=== PATIENT | male | born 1995 | race Caucasian/White ===

== ENCOUNTER 2016-05-03 08:59 | Emergency (ER) | payer OTHER ==
[2016-05-03] MEDS ORDERED: NS 0.9% 1000 ML* 1,000 ML IV ONE (09:18)
[2016-05-03] MEDS ORDERED: Ketorolac INJ* 30 MG/ML 1 ML VIAL IV PUSH ONE (09:25)
[2016-05-03 09:43] LABS: Hematocrit 45 % (42-52); Hemoglobin 14.8 g/dl (14.0-18.0); Mean Corpuscular HGB Conc 33 g/dl (31-36); Mean Corpuscular Hemoglobin 27 pg (27-31); Mean Corpuscular Volume 82 fL (80-94); Mean Platelet Volume 8 um3 (7.4-10.4); Red Blood Count 5.43 10^6/ul (4.0-5.4); Red Cell Distribution Width 13 % (10.5-15); White Blood Count 11.9 10^3/ul (3.5-10.8)
--- NOTE | 2016-05-03 09:56 | ED ---
Abdominal Pain/Male - HPI Summary HPI Summary: 21M presents with intermittent epigastric pain since 2:00am this morning. He states that he has been having foul smelling watery diarrhea every hour. He states that his epigastric pain is cramp like. He states that no one else is sick but he did have some chicken last night from a [employer] restaurant that tasted funny. He denies any fevers. He states that he made himself vomit because he thought he would feel better. He has not taken anything for the pain. He denies any nausea currently. He denies any recent antibiotic use. - History of Current Complaint Chief Complaint: EDAbdPain Stated Complaint: ABD PAIN / DIARRHEA Time Seen by Provider: 05/03/16 09:07 Pain Intensity: 0 - Allergies/Home Medications Allergies/Adverse Reactions: Allergies Allergy/AdvReac Type Severity Reaction Status Date / Time No Known Allergies Allergy Verified 05/03/16 09:00 PMH/Surg Hx/FS Hx/Imm Hx Endocrine/Hematology History: Denies: Hx Anticoagulant Therapy, Hx Diabetes, Hx Thyroid Disease Cardiovascular History: Denies: Hx Congestive Heart Failure, Hx Deep Vein Thrombosis, Hx Hypertension , Hx Myocardial Infarction, Hx Pacemaker/ICD Respiratory History: Denies: Hx Asthma, Hx Chronic Obstructive Pulmonary Disease (COPD), Hx Lung Cancer, Hx Pneumonia, Hx Pulmonary Embolism GI History: Denies: Hx Gall Bladder Disease, Hx Gastrointestinal Bleed, Hx Ulcer, Hx Urosepsis History: Denies: Hx Kidney Stones, Hx Renal Disease Neurological History: Denies: Hx Dementia, Hx Migraine, Hx Seizures, Hx Transient Ischemic Attacks (TIA) Psychiatric History: Denies: Hx Anxiety, Hx Depression, Hx Schizophrenia, Hx Bipolar Disorder - Surgical History Surgery Procedure, Year, and Place: 2009? FINGER SURGERY - Right 3rd finger - Immunization History Date of Tetanus Vaccine: unk Date of Influenza Vaccine: 11/02/15 Infectious Disease History: No Infectious Disease History: Denies: Hx Clostridium Difficile, Hx Hepatitis, Hx Human Immunodeficiency Virus (HIV), Hx of Known/Suspected MRSA, Hx Shingles, Hx Tuberculosis, Traveled Outside the [place] in Last 30 Days - Family History Known Family History: Positive: Cardiac Disease, Hypertension - Social History Alcohol Use: Rare Substance Use Type: Reports: Marijuana Smoking Status (MU): Never Smoked Tobacco Review of Systems Negative: Fever Negative: Chest Pain Negative: Shortness Of Breath Positive: Abdominal Pain - epigastric, Diarrhea. Negative: Vomiting, Nausea All Other Systems Reviewed And Are Negative: Yes Physical Exam Triage Information Reviewed: Yes Vital Signs On Initial Exam: Initial Vitals Temp Pulse Resp BP Pulse Ox 98.8 F 112 18 152/82 98 05/03/16 09:00 05/03/16 09:00 05/03/16 09:00 05/03/16 09:00 05/03/16 09:00 Vital Signs Reviewed: Yes Appearance: Positive: Well-Appearing Skin: Positive: Warm, Dry Head/Face: Positive: Normal Head/Face Inspection Eyes: Positive: Normal, Conjunctiva Clear Respiratory/Lung Sounds: Positive: Clear to Auscultation, Breath Sounds Present Cardiovascular: Positive: Normal, RRR Abdomen Description: Positive: Nontender, Soft Bowel Sounds: Positive: Present - [place] Coma Scale Coma Scale Total: 15 Diagnostics - Vital Signs Vital Signs Temp Pulse Resp BP Pulse Ox 05/03/16 09:16 100.7 F 05/03/16 09:14 116 99 05/03/16 09:13 164/83 05/03/16 09:00 98.8 F 112 18 152/82 98 - Laboratory Lab Results: Lab Results 05/03/16 Range/Units 09:35 WBC 11.9 H (3.5-10.8) 10^3/ul RBC 5.43 H (4.0-5.4) 10^6/ul Hgb 14.8 (14.0-18.0) g/dl Hct 45 (42-52) % MCV 82 (80-94) fL MCH 27 (27-31) pg MCHC 33 (31-36) g/dl RDW 13 (10.5-15) % Plt Count 322 (150-450) 10^3/ul MPV 8 (7.4-10.4) um3 Neut % (Auto) 80.0 (38-83) % Lymph % (Auto) 8.8 L (25-47) % Blanco % (Auto) 9.5 H (1-9) % Eos % (Auto) 1.2 (0-6) % Baso % (Auto) 0.5 (0-2) % Absolute Neuts (auto) 9.5 H (1.5-7.7) 10^3/ul Absolute Lymphs (auto) 1.0 (1.0-4.8) 10^3/ul Absolute Monos (auto) 1.1 H (0-0.8) 10^3/ul Absolute Eos (auto) 0.1 (0-0.6) 10^3/ul Absolute Basos (auto) 0.1 (0-0.2) 10^3/ul Absolute Nucleated RBC 0 10^3/ul Nucleated RBC % 0 Result Diagrams: 05/03/16 09:35 05/03/16 09:35 Lab Statement: Any lab studies that have been ordered have been reviewed, and results considered in the medical decision making process. Abdominal Pain Fem Course/Dx - Course Course Of Treatment: 21M presents with diarrhea and epigastric pain starting today. He states that he ate some chicken last night that did not taste right. He denies anyone else being sick. On exam abdomen is nontender. gave some fluids and patient said was feeling better. was able to give stool sample before left. discussed that due to eatting some bad chicken would treat diarrhea with cipro. told patient will call if stool cultures come back with anything and need to change antibiotics. patient understands and agrees with plan - Diagnoses Differential Diagnosis/HQI/PQRI: Urinary Tract Infection, Other - GERD, gastroenteritis Provider Diagnoses: Diarrhea, Abdominal pain Discharge - Discharge Plan Condition: Good Disposition: HOME Prescriptions: Ciprofloxacin TAB* [Cipro 500 MG TAB*] 500 mg PO BID #14 tab Ondansetron ODT TAB* [Zofran 4 MG Odt TAB*] 4 mg PO Q6H PRN #10 tab.odt PRN Reason: Nausea Patient Education Materials: Acute Diarrhea (ED) Forms: *Work Release Referrals: Radha Jonas MD [Primary Care Provider] - Additional Instructions: Take antibiotic twice a day for 7 days Can take Zofran every 6 hours as needed for nausea Drink small amounts of fluid as tolerated When able to eat follow BRAT diet: Bananas, rice, applesauce, toast Take ibuprofen or Tylenol for pain as needed every 6 hours Follow up with primary within 5 days Return to ED if develop fever that does not respond to Tylenol or ibuprofen, severe abdominal pain, or any new or worsening symptoms
[2016-05-03 09:59] LABS: Urine Bilirubin Negative (Negative); Urine Glucose Negative (Negative); Urine Nitrite Negative (Negative)
[2016-05-03 10:02] LABS: Albumin 4.1 g/dL (3.2-5.2); BUN/Creatinine Ratio 16.5 (8-20); Calcium 9.2 mg/dL (8.6-10.3); EGFR African American 132.8 (>60); EGFR Non-African American 103.2 (>60); Globulin 3.3 g/dL (2-4); Potassium 4.3 mmol/L (3.5-5.0); Total Bilirubin 0.5 mg/dL (0.2-1.0); Total Protein 7.4 g/dL (6.4-8.9)
[2016-05-03 10:59] VITALS: BP 149/73
--- NOTE | 2016-05-04 09:35 | PN ---
Progress Note - Progress Note Note: stool specimen positive by immunoassay for fecal lactoferrin and ngetiave for c. diff. Do not need change of antbiotics and patient can continue with cipro for perceived campylobacter
== END 2016-05-03 10:52 | disposition home or self-care (01) ==
LOC: ED 08:59
DX: R10.84 Generalized abdominal pain (principal); R10.13 Epigastric pain; R19.7 Diarrhea, unspecified
CPT/HCPCS: 36415; 80053; 81003; 83630; 83690; 85025; 86141; 87045; 87046; 87077; 87493; 87899; 96374; 99283; J1885

== ENCOUNTER 2016-08-30 17:52 | Emergency (ER) | payer SELFPAY ==
[2016-08-30 18:24] VITALS: BP 132/62
[2016-08-30] MEDS ORDERED: BSS OPTH.SOL* BTL OPHTHALMIC ONE (18:33)
[2016-08-30] MEDS ORDERED: Fluorescein Sodium TOPICAL* 1 MG TEST OPHTHALMIC ONE (18:34)
[2016-08-30] MEDS ORDERED: Tetracaine 0.5% OPTH.SOL 4 ML* 1 DROP BTL LEFT EYE ONE (18:35)
--- NOTE | 2016-08-30 18:35 | UC ---
Eye Complaint HPI - HPI Summary HPI Summary: complaint of left eye swelling that started 10 this morning went home a took a nap and when he woke up this afternoon had some purulent discharge thta had made his eyelashed stick together vision is slightly blurry was pulling weeds in a flower bed this morning flushing his eye with water with some relief denies getting anything in his eye - History of Current Complaint Chief Complaint: UCEye Stated Complaint: EYE ISSUE Time Seen by Provider: 08/30/16 18:28 Hx Obtained From: Patient - Allergies/Home Medications Allergies/Adverse Reactions: Allergies Allergy/AdvReac Type Severity Reaction Status Date / Time No Known Allergies Allergy Verified 08/30/16 18:18 PMH/Surg Hx/FS Hx/Imm Hx Previously Healthy: Yes Other History Of: Negative For: HIV, Hepatitis B, Hepatitis C, Anticoagulant Therapy - Surgical History Surgical History: Yes Surgery Procedure, Year, and Place: 2010 FINGER SURGERY - Right 3rd finger - Family History Known Family History: Positive: Cardiac Disease, Hypertension - Social History Alcohol Use: Rare Substance Use Type: Marijuana Smoking Status (MU): Never Smoked Tobacco - Immunization History Most Recent Influenza Vaccination: 7175-4210 Season Most Recent Tetanus Shot: does not recall Review of Systems Constitutional: Negative Skin: Negative Eyes: Drainage, Eye Redness ENT: Negative Respiratory: Negative Cardiovascular: Negative Gastrointestinal: Negative Genitourinary: Negative Motor: Negative Neurovascular: Negative Musculoskeletal: Negative Neurological: Negative Psychological: Negative All Other Systems Reviewed And Are Negative: Yes Physical Exam Triage Information Reviewed: Yes Appearance: No Pain Distress, Well-Nourished, Obese Vital Signs: Initial Vital Signs Temp 98.2 F 08/30/16 18:18 Pulse 76 08/30/16 18:18 BP 132/62 08/30/16 18:18 Pulse Ox 98 08/30/16 18:18 Vital Signs Reviewed: Yes Eyes: Positive: Conjunctiva Inflamed - left, Discharge - left, Other: - left eye observed under fluorisciene- no foreign objects, scratches or abrasions in left eye ENT: Positive: Pharynx normal Dental Exam: Normal Neck: Positive: No Lymphadenopathy Respiratory: Positive: Lungs clear, Normal breath sounds, No respiratory distress, No accessory muscle use Cardiovascular: Positive: RRR, No Murmur, Pulses Normal Abdomen Description: Positive: Nontender, Soft Bowel Sounds: Positive: Present Musculoskeletal: Positive: No Edema Neurological: Positive: Alert Psychological Exam: Normal Skin Exam: Normal Eye Complaint Course/Dx - Differential Dx/Diagnosis Differential Diagnosis/HQI/PQRI: Conjunctivitis, Corneal Abrasion, Foreign Body Provider Diagnoses: conjuntivitis-left Discharge - Discharge Plan Condition: Stable Disposition: HOME Prescriptions: Erythromycin OPTH OINT* 1 applic LEFT EYE TID #1 ophth.oint Patient Education Materials: Conjunctivitis (ED) Referrals: [facility] [place] [facility] [Outside] Additional Instructions: Please start antibiotic ointment as directed Increase fluids and rest Take benadryl 25 mg tonight and tomorrow morning Please review your discharge instructions. If your symptoms do not improve please call your primary care provider or return to urgent care.
== END 2016-08-30 19:10 | disposition home or self-care (01) ==
LOC: UCEAST 17:52
DX: H10.9 Unspecified conjunctivitis (principal)
CPT/HCPCS: 99212; A9270-GY; G0463

== ENCOUNTER 2016-09-02 15:08 | Emergency (ER) | payer SELFPAY ==
--- NOTE | 2016-09-02 18:26 | UC ---
Skin Complaint HPI - HPI Summary HPI Summary: 21 y/o male presents to the urgent care c/o red rash all over his body for the past week. Pt reports reports rash started in his RT leg and now is also in his groin, his arms and back. He has been scratching it and now looks infected. Now is oozing a yellowish discharge. He thinks it started as a mosquito bite. Pt denies fever, SOB, chest pain, weakness, urinary symptoms, N/V /D. - History of Current Complaint Hx Obtained From: Patient Onset/Duration: Gradual Onset, Lasting Days, Still Present Skin Exposure Onset/Duration: Days Ago Timing: Constant Onset Severity: Mild Current Severity: Moderate Pain Intensity: 2 Pain Scale Used: 0-10 Numeric Location: Diffuse - specailly in the RT leg and the RT side of his groin Character: Pruritus, Pain, Redness, Raised Aggravating: Humidity, Touch Alleviating: Nothing Associated Signs & Symptoms: Positive: Drainage - oozing a yellowish discharge. Negative: Nausea, Vomiting, Numbness, Fever, Red Streaks, Joint Swelling Related History: Possible Reaction to: Insect <Tracy Kaur - Last Filed: 09/03/16 00:57> <Aurea Wang - Last Filed: 09/03/16 08:10> - History of Current Complaint Chief Complaint: UCSkin Time Seen by Provider: 09/02/16 17:58 Stated Complaint: RASH - Allergy/Home Medications Allergies/Adverse Reactions: Allergies Allergy/AdvReac Type Severity Reaction Status Date / Time No Known Allergies Allergy Verified 08/30/16 18:18 Review of Systems Constitutional: Negative Skin: Rash - different parts of the body, specially RT leg and RT side of groin Eyes: Negative ENT: Negative Respiratory: Negative Cardiovascular: Negative Gastrointestinal: Negative Genitourinary: Negative Motor: Negative Neurovascular: Negative Musculoskeletal: Negative Neurological: Negative Psychological: Negative All Other Systems Reviewed And Are Negative: Yes <Tracy Kaur - Last Filed: 09/03/16 00:57> PMH/Surg Hx/FS Hx/Imm Hx Other History Of: Negative For: HIV, Hepatitis B, Hepatitis C, Anticoagulant Therapy - Surgical History Surgical History: Yes Surgery Procedure, Year, and Place: 2010 FINGER SURGERY - Right 3rd finger - Family History Known Family History: Positive: Cardiac Disease, Hypertension - Social History Alcohol Use: Rare Substance Use Type: Marijuana Smoking Status (MU): Never Smoked Tobacco - Immunization History Most Recent Influenza Vaccination: 3032-6106 Season Most Recent Tetanus Shot: does not recall <Tracy Kaur - Last Filed: 09/03/16 00:57> Physical Exam Triage Information Reviewed: Yes Appearance: Well-Appearing, No Pain Distress, Well-Nourished, Obese - morbid Vital Signs: Initial Vital Signs Temp 98 F 09/02/16 17:39 Pulse 87 09/02/16 17:39 Resp 20 09/02/16 17:39 BP 139/85 09/02/16 17:39 Pulse Ox 100 09/02/16 17:39 Vital Signs Reviewed: Yes Eye Exam: Normal Eyes: Positive: Conjunctiva Clear - PERRLA, EOMI, fundi grossly normal, ENT Exam: Normal ENT: Positive: Normal ENT inspection, Hearing grossly normal, Pharynx normal, TMs normal Dental Exam: Normal Neck exam: Normal Neck: Positive: Supple, Nontender, No Lymphadenopathy Respiratory Exam: Normal Respiratory: Positive: Chest non-tender, Lungs clear, Normal breath sounds Cardiovascular Exam: Normal Cardiovascular: Positive: RRR, No Murmur, Pulses Normal, Brisk Capillary Refill Abdominal Exam: Normal Abdomen Description: Positive: Nontender, No Organomegaly, Soft, Bruit. Negative: CVA Tenderness (R), CVA Tenderness (L) Bowel Sounds: Positive: Present Musculoskeletal Exam: Normal Musculoskeletal: Positive: Strength Intact, ROM Intact, No Edema Neurological Exam: Normal Psychological Exam: Normal Skin Exam: Normal Skin: Positive: Other - RT lower extremety with erythematous patch w/ indistict borders with discrete purulant discharge and some crusting. about [id number] in size. Mild tenderness to palpation and warm to touch. Similar erythematous patch in the proximal medial thigh about 3haf4in in size. Discrete postule in different parts of legs and abdomen. <Tracy Kaur - Last Filed: 09/03/16 00:57> Vital Signs: Initial Vital Signs Temp 98 F 09/02/16 17:39 Pulse 87 09/02/16 17:39 Resp 20 09/02/16 17:39 BP 139/85 09/02/16 17:39 Pulse Ox 100 09/02/16 17:39 <Aurea Wang - Last Filed: 09/03/16 08:10> Course/Dx - Course Course Of Treatment: 21 y/o male presents to the urgent care c/o red rash all over his body for the past week. Pt reports reports rash started in his RT leg and now is also in his groin, his arms and back. He has been scratching it and now looks infected. Now is oozing a yellowish discharge. He thinks it started as a mosquito bite. Pt denies fever, SOB, chest pain, weakness, urinary symptoms , N/V/D.Hx obtained. PE abnormal findings: RT lower extremety with erythematous patch w/ indistict borders with discrete purulant discharge and some crusting. about 6wmd6oc in size. Mild tenderness to palpation and warm to touch. Similar erythematous patch in the proximal medial thigh about [id number] in size. Discrete postule in different parts of legs and abdomen. Eruption probably started like an allergic skin reaction, but now it looks co-infected bacterial rash s/p scratching. Pt also mentioned he live with someone who has HX of MRSA. Pt Rx Bactrim BID x 10 day with muporicin topical cream to cover for MRSA. Also Rx Benadryl tabs for Pruritis. Pt advised if symptoms do not improve or worsen to return to the urgent care or f/u with his PCP for further evaluation and treatment. Pt understood and agreed. Left the clinic ambulating. - Differential Diagnoses - Skin Complaint Differential Diagnoses: Allergic Reaction, Cellulitis, Eczema, MRSA, Scabies, Tick Born Illness, Urticaria - Diagnoses Provider Diagnoses: 1-unspecified rash r/o cellulitis <Tracy Kaur - Last Filed: 09/03/16 00:57> Discharge <Tracy Kaur - Last Filed: 09/03/16 00:57> <Aurea Wang - Last Filed: 09/03/16 08:10> - Discharge Plan Condition: Stable Disposition: HOME Prescriptions: Mupirocin 2% CREAM* [Bactroban 2% CREAM*] 1 applic TOPICAL TID #3 tube Sulfamethox/Trimethoprim DS* [Bactrim DS 800/160 TAB*] 1 tab PO BID #20 tab diPHENhydraMINE PO* [Benadryl PO 25 MG TAB*] 25 mg PO Q6H PRN #30 tab PRN Reason: Pruritis Patient Education Materials: Cellulitis (ED) Referrals: [facility] [Outside] No Primary Care Phys,NOPCP [Primary Care Provider] - Additional Instructions: Please take and apply medications as instructed and finish the full course of treatment to avoid recurrent infection. If you do not improve or if symptoms worsen after the course of antibiotics, you should either follow up with your PCP or return to the urgent care for further evaluation and treatment. Attestation Statement User Type: Provider - I was available for consult. This patient was seen by the JEIMY. The patient was not presented to, seen by, or examined by me. -Vero <Aurea Wang - Last Filed: 09/03/16 08:10>
[2016-09-02 18:49] VITALS: BP 139/65
== END 2016-09-02 18:49 | disposition home or self-care (01) ==
LOC: UCEAST 15:08
DX: R21 Rash and other nonspecific skin eruption (principal)
CPT/HCPCS: 99212; G0463

== ENCOUNTER 2016-12-15 18:34 | Emergency (ER) | payer OTHER ==
[2016-12-15 18:54] VITALS: BP 137/80
--- NOTE | 2016-12-15 19:03 | UC ---
Nausea/Vomiting/Diarrhea HPI - HPI Summary HPI Summary: 21 y/o male presents to the urgent care c/o 4 episodes of nausea and vomiting overnight. Vomiting stopped this morning at 0700am. Mild sore throat due to vomiting. He thinks he ate something that upset his stomach. Pt denies abdominal pain or diarrhea, SoB, chest pain, urinary problems. Pt did not take anything to alleviate symptoms. 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 - History of Current Complaint Chief Complaint: UCRespiratory Stated Complaint: VOMITING NEED DOC NOTE 4 WORK Time Seen by Provider: 12/15/16 18:57 Hx Obtained From: Patient Onset/Duration: Gradual Onset, Lasting Days - 1 day, Resolved Timing: Intermittent Episodes Lasting: - few seconds Severity Initially: Mild Severity Currently: Mild Pain Intensity: 0 Pain Scale Used: 0-10 Numeric Location: Other - no abdominal pain Character: Not Applicable Aggravating Factor(s): Food Alleviating Factor(s): Vomiting Nausea/Vomiting Presence: Vomiting - 4 episodes over night that has already resolved Vomiting Frequency: Every 3-4 hours Nausea/Vomiting Duration: 12-24 hours Vomiting Characteristics: Bilious Diarrhea Presence: No - Risk Factors Influenza Risk Factors: Negative Surgical Obstruction Risk Factor(s): Negative - Allergies/Home Medications Allergies/Adverse Reactions: Allergies Allergy/AdvReac Type Severity Reaction Status Date / Time No Known Allergies Allergy Verified 12/15/16 18:54 PMH/Surg Hx/FS Hx/Imm Hx Previously Healthy: Yes - Pt denies PMHX Other History Of: Negative For: HIV, Hepatitis B, Hepatitis C, Anticoagulant Therapy - Surgical History Surgical History: Yes Surgery Procedure, Year, and Place: 2010 FINGER SURGERY - Right 3rd finger - Family History Known Family History: Positive: Cardiac Disease, Hypertension - Social History Occupation: Employed Full-time Lives: With Family Alcohol Use: Occasionally Substance Use Type: None Smoking Status (MU): Never Smoked Tobacco - Immunization History Most Recent Influenza Vaccination: 6007-2081 Season Most Recent Tetanus Shot: does not recall Review of Systems Constitutional: Negative Skin: Negative Eyes: Negative ENT: Sore Throat Respiratory: Negative Cardiovascular: Negative Gastrointestinal: Vomiting, Nausea Genitourinary: Negative Motor: Negative Neurovascular: Negative Musculoskeletal: Negative Neurological: Negative Psychological: Negative Is Patient Immunocompromised?: No All Other Systems Reviewed And Are Negative: Yes Physical Exam Triage Information Reviewed: Yes Vital Signs: Initial Vital Signs Temp 96.2 F 12/15/16 18:51 Pulse 95 12/15/16 18:51 Resp 18 12/15/16 18:51 BP 137/80 12/15/16 18:51 Pulse Ox 100 12/15/16 18:51 - Additional Comments VITAL SIGNS: Reviewed. GENERAL: Patient is a well developed and nourished obese male who is lying comfortable in the examining table. Patient is not in any acute respiratory distress. HEAD AND FACE: Normocephalic and atraumatic. EYES: PERRLA, EOMI x 2, No injected conjunctiva. EARS: Hearing grossly intact. Ear canals and tympanic membranes are WNL. MOUTH: Oropharynx within normal limits. NECK: Supple, trachea is midline, no adenopathy, no JVD. CHEST: Symmetric, no tenderness at palpation LUNGS: Clear to auscultation bilaterally. No wheezing or crackles. CVS: RRR,, S1 and S2 present, no murmurs or gallops appreciated. ABDOMEN: Soft, non-tender. No signs of distention. Positive bowel sounds. No rebound no guarding, and no masses palpated. No abdominal bruit or pulsations. EXTREMITIES: FROM in all major joints, no edema, no cyanosis or clubbing. NEURO: Alert and oriented x 3. No acute neurological deficits. Speech is normal. SKIN: Dry and warm Naus/Vom/Diarrhea Course/Dx - Course Course Of Treatment: 21 y/o male presents to the urgent care c/o 4 episodes of nausea and vomiting overnight. Vomiting stopped this morning at 0700am. Mild sore throat due to vomiting. He thinks he ate something that upset his stomach. Pt denies abdominal pain or diarrhea, SOB, chest pain, urinary problems. Pt did not take anything to alleviate symptoms. 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 PE: WNL. Pt Rx Zofran PO for N/V, Advised to increase to increase fluid intake, eat soft meals, rest. However if symptoms worsen and abdominal pain develops to go Immediately to the ER for further management. Pt explained D/C instructions. Pt understood and agreed w/ plan of care. Pt left the clinic ambulating, A&OX3 - Differential Dx/Diagnosis Differential Diagnoses - Male: Peptic Ulcer Disease, Enterocolitis, Gastroenteritis (Viral), Gastroenteritis (Bacterial), Vomiting, Diarrhea, Gastritis Provider Diagnoses: 1- Nausea and vomiting Is Visit Related: No Condition At Discharge: Stable Discharge - Discharge Plan Condition: Stable Disposition: HOME Prescriptions: Ondansetron TAB* [Zofran 4 MG Tab*] 4 mg PO Q6H PRN #12 tab PRN Reason: Vomiting Patient Education Materials: Acute Nausea and Vomiting (ED) Forms: *Work Release Referrals: No Primary Care Phys,NOPCP [Primary Care Provider] - [facility] [place] [facility] [Outside] Additional Instructions: 1- Please increase fluid intake with Gatorade, eat small portions of soft meals 2- If he develops fever or abdominal pain w/ recurrent episodes of vomiting please go the ER, otherwise f/u with your PCP if diarrhea not resolving in 2-3 days
== END 2016-12-15 19:10 | disposition home or self-care (01) ==
LOC: UCEAST 18:34
DX: R11.2 Nausea with vomiting, unspecified (principal); J02.9 Acute pharyngitis, unspecified
CPT/HCPCS: 99211; G0463

== ENCOUNTER 2017-03-07 01:15 | Emergency (ER) | payer OTHER ==
[2017-03-07] MEDS ORDERED: Pseudoephedrine TAB* 60 MG PO ONE (03:24)
[2017-03-07] MEDS ORDERED: Ibuprofen TAB* 800 MG PO ONE (03:24)
[2017-03-07 04:36] VITALS: BP 127/90
--- NOTE | 2017-03-07 04:56 | ED ---
Wolf Birmingham Nikita, scribed for Marko Trujillo MD on 03/07/17 at 0328 . Throat Pain/Nasal Congestion - HPI Summary HPI Summary: This patient is a 22 year old M presenting to ED with a chief complaint of R ear congestion and sinus congestion since 5 days ago. The patient rates the pain 0/10 in severity. Symptoms aggravated by nothing. Symptoms alleviated by nothing. Patient reports decreased hearing and cough. Pt denies fever. Pt has had similar episodes x3 previously. - History of Current Complaint Chief Complaint: EDGeneral Time Seen by Provider: 03/07/17 03:10 Hx Obtained From: Patient Onset/Duration: Sudden Onset, Lasting Days, Still Present Associated Signs And Symptoms: Positive: Sinus Discomfort - Allergies/Home Medications Allergies/Adverse Reactions: Allergies Allergy/AdvReac Type Severity Reaction Status Date / Time No Known Allergies Allergy Verified 12/15/16 18:54 PMH/Surg Hx/FS Hx/Imm Hx Endocrine/Hematology History: Denies: Hx Anticoagulant Therapy, Hx Diabetes, Hx Thyroid Disease Cardiovascular History: Denies: Hx Congestive Heart Failure, Hx Deep Vein Thrombosis, Hx Hypertension , Hx Myocardial Infarction, Hx Pacemaker/ICD Respiratory History: Denies: Hx Asthma, Hx Chronic Obstructive Pulmonary Disease (COPD), Hx Lung Cancer, Hx Pneumonia, Hx Pulmonary Embolism GI History: Denies: Hx Gall Bladder Disease, Hx Gastrointestinal Bleed, Hx Ulcer, Hx Urosepsis History: Denies: Hx Kidney Stones, Hx Renal Disease Neurological History: Denies: Hx Dementia, Hx Migraine, Hx Seizures, Hx Transient Ischemic Attacks (TIA) Psychiatric History: Denies: Hx Anxiety, Hx Depression, Hx Schizophrenia, Hx Bipolar Disorder - Surgical History Surgery Procedure, Year, and Place: 2009 FINGER SURGERY - Right 3rd finger - Immunization History Date of Tetanus Vaccine: unk Date of Influenza Vaccine: 11/02/15 Infectious Disease History: No Infectious Disease History: Denies: Hx Clostridium Difficile, Hx Hepatitis, Hx Human Immunodeficiency Virus (HIV), Hx of Known/Suspected MRSA, Hx Shingles, Hx Tuberculosis, Hx Known/ Suspected VRE, Hx Known/Suspected VRSA, History Other Infectious Disease, Traveled Outside the [place] in Last 30 Days - Family History Known Family History: Positive: Cardiac Disease, Hypertension - Social History Alcohol Use: Occasionally Substance Use Type: Reports: None Smoking Status (MU): Never Smoked Tobacco Review of Systems Negative: Fever Positive: Ear Ache - R ear; decreased hearing, Other - sinus congestion Positive: Cough All Other Systems Reviewed And Are Negative: Yes Physical Exam - Summary Physical Exam Summary: VITAL SIGNS: Reviewed. GENERAL: ~Patient is a well-developed and nourished MALE who is lying comfortable in the stretcher. Patient is not in any acute respiratory distress. HEAD AND FACE: No signs of trauma. No ecchymosis, hematomas or skull depressions. No sinus tenderness. EYES: PERRLA, EOMI x 2, No injected conjunctiva, no nystagmus. EARS: Hearing grossly intact. Ear canals and tympanic membranes are within normal limits. MOUTH: Oropharynx within normal limits. NECK: Supple, trachea is midline, no adenopathy, no JVD, no carotid bruit, no c- spine tenderness, neck with full ROM. CHEST: Symmetric, no tenderness at palpation LUNGS: Clear to auscultation bilaterally. No wheezing or crackles. CVS: Regular rate and rhythm, S1 and S2 present, no murmurs or gallops appreciated. ABDOMEN: Soft, non-tender. No signs of distention. No rebound no guarding, and no masses palpated. Bowel sounds are normal. EXTREMITIES: FROM in all major joints, no edema, no cyanosis or clubbing. NEURO: Alert and oriented x 3. No acute neurological deficits. Speech is normal and follows commands. SKIN: Dry and warm Triage Information Reviewed: Yes Vital Signs On Initial Exam: Initial Vitals Temp Pulse Resp BP Pulse Ox 96 F 94 20 131/94 96 03/07/17 01:22 03/07/17 01:22 03/07/17 01:22 03/07/17 01:22 03/07/17 01:22 Vital Signs Reviewed: Yes Diagnostics - Vital Signs Vital Signs Temp Pulse Resp BP Pulse Ox 03/07/17 01:22 96 F 94 20 131/94 96 - Laboratory Lab Statement: Any lab studies that have been ordered have been reviewed, and results considered in the medical decision making process. EENT Course/Dx - Course Assessment/Plan: This patient is a 22 year old M presenting to ED with a chief complaint of R ear congestion and sinus congestion since 5 days ago. In the ED course, pt was given motrin, sudafed, and a nasal spray. Pt will be discharged. Pt is agreeable with this plan. - Differential Diagnoses Differential Diagnoses: Other - URI - Diagnoses Provider Diagnoses: Upper respiratory infection Discharge - Discharge Plan Condition: Stable Disposition: HOME Patient Education Materials: Upper Respiratory Infection (ED) Referrals: [facility] [Provider Group] (Follow up with PCP in 1-2 days.) Additional Instructions: RETURN TO THE EMERGENCY DEPARTMENT FOR CHANGING OR WORSENING SYMPTOMS. The patient should take over the counter medication such as Motrin The documentation as recorded by the Wolf glynn Nikita accurately reflects the service I personally performed and the decisions made by Ronnie sloan Abdul, MD.
[2017-03-07] MEDS ORDERED: Oxymetazoline 0.05% NASAL SPR* 15 ML BTL BOTH NARES SCH (09:00)
== END 2017-03-07 04:35 | disposition home or self-care (01) ==
LOC: ED 01:15
DX: J06.9 Acute upper respiratory infection, unspecified (principal)
CPT/HCPCS: 99282; A9270-GY

== ENCOUNTER 2017-04-10 22:45 | Emergency (ER) | payer SELFPAY ==
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
[2017-04-11 03:22] VITALS: BP 149/78
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
== END 2017-04-11 03:20 | disposition home or self-care (01) ==
LOC: ED 22:45
DX: S09.90XA Unspecified injury of head, initial encounter (principal); R07.89 Other chest pain; M54.9 Dorsalgia, unspecified; R06.02 Shortness of breath; M54.2 Cervicalgia; V47.5XXA Car driver injured in collision with fixed or stationary object in traffic accident, initial encounter; Y92.410 Unspecified street and highway as the place of occurrence of the external cause
CPT/HCPCS: 71250; 72125; 99282

== ENCOUNTER 2017-05-03 15:16 | Emergency (ER) | payer SELFPAY ==
[2017-05-03 16:13] VITALS: BP 133/82
--- NOTE | 2017-05-03 16:23 | UC ---
Abdominal Pain Male HPI - HPI Summary HPI Summary: Pt presents with vomiting, loose stools, and fatigue since yesterday. He said that his daughter was recently sick with similar symptoms and hers lasted about 4 days. He is confident that his symptoms are viral, but says he wouldn't be here today except he took the day off work and needs a doctor's note. He is able to drink fluids without vomiting and is trying to stay hydrated. Generalized abdominal cramping with no specific pain. Denies fever, chills, SOB , chest pain. - History of Current Complaint Chief Complaint: UCGeneralIllness Stated Complaint: VOMITING,FEVER,DIARRHEA Time Seen by Provider: 05/03/17 16:22 Hx Obtained From: Patient Timing: Constant Severity Initially: Mild Severity Currently: Mild Pain Intensity: 4 Pain Scale Used: 0-10 Numeric Location: Diffuse - Allergies/Home Medications Allergies/Adverse Reactions: Allergies Allergy/AdvReac Type Severity Reaction Status Date / Time No Known Allergies Allergy Verified 05/03/17 16:08 Home Medications: Home Medications NK [No Home Medications Reported] 05/03/17 [History Confirmed 05/03/17] PMH/Surg Hx/FS Hx/Imm Hx Previously Healthy: Yes Other History Of: Negative For: HIV, Hepatitis B, Hepatitis C, Anticoagulant Therapy - Surgical History Surgical History: Yes Surgery Procedure, Year, and Place: 2010 FINGER SURGERY - Right 3rd finger - Family History Known Family History: Positive: Cardiac Disease, Hypertension - Social History Occupation: Employed Full-time Lives: With Family Alcohol Use: Rare Substance Use Type: Marijuana Smoking Status (MU): Never Smoked Tobacco - Immunization History Most Recent Influenza Vaccination: 2308-4852 Season Most Recent Tetanus Shot: does not recall Review of Systems Constitutional: Negative Skin: Negative Eyes: Negative ENT: Negative Respiratory: Negative Cardiovascular: Negative Gastrointestinal: Abdominal Pain, Vomiting, Diarrhea Genitourinary: Negative Neurovascular: Negative Musculoskeletal: Negative Neurological: Negative Psychological: Negative All Other Systems Reviewed And Are Negative: Yes Physical Exam - Summary Physical Exam Summary: GENERAL: NAD. WDWN. No pain distress. SKIN: No rashes, sores, ulcers, masses, lesions. NECK: Supple. Nontender. No lymphadenopathy. CHEST: CTAB. No r/r/w. No accessory muscle use. Breathing comfortably and in no distress. CV: RRR. Without m/r/g. Pulses intact. Brisk cap refill. ABDOMEN: Generalized mild TTP. Soft. No distention or guarding. No organomegaly. No CVA tenderness. Bowel sounds present x4. No mcburney's point tenderness. NEURO: Alert. CN II-XII grossly intact. PSYCH: Age appropriate behavior. Triage Information Reviewed: Yes Vital Signs: Initial Vital Signs Temp 99.5 F 05/03/17 16:09 Pulse 95 05/03/17 16:09 Resp 16 05/03/17 16:09 BP 133/82 05/03/17 16:09 Pulse Ox 99 05/03/17 16:09 Abd Pain Male Course/Dx - Course Course Of Treatment: POC flu negative. Suspect Viral gastroenteritis - advised rest, fluids, and advanced diet to BRAT diet as tolerated. - Differential Dx/Clinical Impression Provider Diagnoses: Viral gastroenteritits Discharge - Discharge Plan Condition: Stable Disposition: HOME Patient Education Materials: Gastroenteritis (ED) Forms: *Work Release Referrals: No Primary Care Phys,NOPCP [Primary Care Provider] - Additional Instructions: If you develop a fever, shortness of breath, chest pain, new or worsening symptoms - please call your PCP or go to the ED. Your blood pressure was high at todays visit. Please see your primary provider within 4 weeks for recheck and re-evaluation.
== END 2017-05-03 16:36 | disposition home or self-care (01) ==
LOC: UCEAST 15:16
DX: A08.4 Viral intestinal infection, unspecified (principal)
CPT/HCPCS: 87502; 99211; G0463

== ENCOUNTER 2017-07-30 21:50 | Emergency (ER) | payer OTHER ==
--- NOTE | 2017-07-30 21:56 | UC ---
Skin Complaint HPI - HPI Summary HPI Summary: 22 y/o male presents to the urgent care c/o a rash in his stomach - History of Current Complaint Time Seen by Provider: 07/30/17 21:54 Stated Complaint: RASH ON STOMACH Hx Obtained From: Patient - Allergy/Home Medications Allergies/Adverse Reactions: Allergies Allergy/AdvReac Type Severity Reaction Status Date / Time No Known Allergies Allergy Verified 05/03/17 16:08 PMH/Surg Hx/FS Hx/Imm Hx Other History Of: Negative For: HIV, Hepatitis B, Hepatitis C, Anticoagulant Therapy - Surgical History Surgical History: Yes Surgery Procedure, Year, and Place: 2009 FINGER SURGERY - Right 3rd finger - Family History Known Family History: Positive: Cardiac Disease, Hypertension - Social History Alcohol Use: Rare Substance Use Type: Marijuana Smoking Status (MU): Never Smoked Tobacco - Immunization History Most Recent Influenza Vaccination: 3721-6419 Season Most Recent Tetanus Shot: does not recall Discharge - Discharge Plan Referrals: No Primary Care Phys,NOPCP [Primary Care Provider] -
[2017-07-30 22:03] VITALS: BP 145/82
--- NOTE | 2017-07-30 22:21 | UC ---
Madeline Birmingham Rebecca, scribed for Aurea Wang MD on 07/30/17 at 2210 . Skin Complaint HPI - HPI Summary HPI Summary: Pt is a 22 y/o M who presents to [facility] c/o abdominal rash for about 1 month. Sx have been gradually worsening since onset and is intermittently pruritic. worse when wet. Treated it with a ring worm topical medication that was left over from his son with no other medications or Tx. Negative drainage, fever, chills. Nobody at home has a similar rash. Does not have a PCP. Pt's medications reviewed this visit - History of Current Complaint Chief Complaint: [facility] Time Seen by Provider: 07/30/17 21:54 Stated Complaint: RASH ON STOMACH Hx Obtained From: Patient Onset/Duration: Gradual Onset, Lasting Weeks - 1 month, Still Present Current Severity: None Pain Intensity: 0 Pain Scale Used: 0-10 Numeric Location: Other - Abdomen Character: Pruritus Aggravating Factor(s): Nothing Alleviating Factor(s): Nothing Associated Signs & Symptoms: Positive: Negative. Negative: Fever, Chills, Drainage - Allergy/Home Medications Allergies/Adverse Reactions: Allergies Allergy/AdvReac Type Severity Reaction Status Date / Time No Known Allergies Allergy Verified 07/30/17 22:02 Review of Systems Constitutional: Negative Skin: Rash - Pruritic abdominal rash Eyes: Negative ENT: Negative Respiratory: Negative Cardiovascular: Negative Gastrointestinal: Negative Genitourinary: Negative Motor: Negative Neurovascular: Negative Musculoskeletal: Negative Neurological: Negative Psychological: Negative All Other Systems Reviewed And Are Negative: Yes - Comments Additional Review of Systems Comments: NEGATIVE: Drainage, fever, chills PMH/Surg Hx/FS Hx/Imm Hx - Additional Past Medical History Additional PMH: NEGATIVE PMHx: HTN, CAD, COPD, Asthma Previously Healthy: Yes Other History Of: Negative For: HIV, Hepatitis B, Hepatitis C, Anticoagulant Therapy - Surgical History Surgical History: Yes Surgery Procedure, Year, and Place: 2010 FINGER SURGERY - Right 3rd finger - Family History Known Family History: Positive: Cardiac Disease, Hypertension - Social History Occupation: Employed Full-time Lives: With Family Alcohol Use: Rare Substance Use Type: None Smoking Status (MU): Never Smoked Tobacco - Immunization History Most Recent Influenza Vaccination: [id number] Season Most Recent Tetanus Shot: does not recall Physical Exam - Summary Physical Exam Summary: Vital Signs Reviewed: Yes A+Ox3, no distress Eyes: Conjunctiva Clear, XIAO. EOM intact and full ENT: Hearing grossly normal TM x 2 clear, mmoist, uvula midline, no exudate, no erythema Neck: Positive: Supple Respiratory: Positive: No respiratory distress, No accessory muscle use + CTA throughout no w/r Cardiovascular: RRR nl s1, s2 no m/r CBT <2 sec abd soft + BS nt/nd no guarding, no distension Musculoskeletal Exam: ELLIOTT x 4 without difficulty Strength Intact, ROM Intact Neurological: Positive: Alert, + sensation throughout Psychological: Positive: Normal Response To Family Skin: Positive: Pt with yeast appearing erythema confluent under abd panus from iliac crest to iliac no open wounds non tender, dry appearing no bleeding Triage Information Reviewed: Yes Vital Signs: Initial Vital Signs Temp 98.3 F 07/30/17 21:58 Pulse 99 07/30/17 21:58 Resp 18 07/30/17 21:58 BP 145/82 07/30/17 21:58 Pulse Ox 97 07/30/17 21:58 Course/Dx - Course Course Of Treatment: Patient medications reviewed this visit. Elevated BP noted and advised to follow up with PCP. deanne skin infection. nystatin cream. keep dry. gentle soap. physician referral center - Diagnoses Provider Diagnoses: deanne skin infection Discharge - Sign-Out/Discharge Documenting (check all that apply): Discharge/Admit/Transfer - Discharge - Discharge Plan Condition: Stable Disposition: HOME Prescriptions: Nystatin CREAM* [Nystatin Cream*] 1 applic TOPICAL BID #1 tube Patient Education Materials: Skin Yeast Infection (ED) Referrals: No Primary Care Phys,NOPCP [Primary Care Provider] - [facility] [Outside] Additional Instructions: - Apply ointment to area 2 times a day - keep area dry - dry completely after showering and during the day with sweating - contact the physician referral center to schedule a follow-up appointment with a new primary care provider - Billing Disposition and Condition Condition: STABLE Disposition: Home The documentation as recorded by the Madeline glynn Rebecca accurately reflects the service I personally performed and the decisions made by Felipe sloan Laura, MD.
== END 2017-07-30 22:30 | disposition home or self-care (01) ==
LOC: UCEAST 21:50
DX: B37.2 Candidiasis of skin and nail (principal); R03.0 Elevated blood-pressure reading, without diagnosis of hypertension
CPT/HCPCS: 99212; G0463

== ENCOUNTER 2017-11-17 08:06 | Emergency (ER) | payer OTHER ==
[2017-11-17 08:15] VITALS: BP 140/79
--- NOTE | 2017-11-17 09:15 | RAD ---
INDICATION: Cough for 2 weeks. COMPARISON: Correlation is made to prior study from June 05, 2012. TECHNIQUE: Dual-energy PA and lateral views of the chest were obtained. FINDINGS: The heart is within normal limits in size. Mediastinal and hilar contours appear within normal limits. The lungs are clear. No pleural effusion is present. IMPRESSION: NO EVIDENCE FOR ACTIVE CARDIOPULMONARY DISEASE.
--- NOTE | 2017-11-17 09:27 | UC ---
Respiratory Complaint HPI - HPI Summary HPI Summary: 22 year old male presents with severe cough, "hard to breathe" at times, + rib pain with coughing, + diziness with coughing, no blurred vision, no nausea/ diarrhea, but vomiting with coughing fits at times, + mild pain with swallowing , able to swallow, no ill contacts, no feer, + chills, inus congestino x 2 weeks. no ear pain. constant symptoms. elevated BP today - History of Current Complaint Chief Complaint: UCGeneralIllness Stated Complaint: SORE THROAT,CONGESTED Time Seen by Provider: 11/17/17 08:26 Hx Obtained From: Patient Onset/Duration: Gradual Onset, Lasting Days Timing: Constant Severity Initially: Mild Severity Currently: Mild Pain Intensity: 0 Aggravating Factors: Exertion, Deep Breaths, Recumbent Position Alleviating Factors: Nothing Associated Signs And Symptoms: Positive: Chills, Dizziness, URI - Allergies/Home Medications Allergies/Adverse Reactions: Allergies Allergy/AdvReac Type Severity Reaction Status Date / Time No Known Allergies Allergy Verified 11/17/17 08:10 Home Medications: Home Medications Guaifen/Dextromethorphan/PE [Cough-Cold Syrup] 1 liq PO ONCE 11/17/17 [History Confirmed 11/17/17] PMH/Surg Hx/FS Hx/Imm Hx Previously Healthy: Yes Other History Of: Negative For: HIV, Hepatitis B, Hepatitis C, Anticoagulant Therapy - Surgical History Surgical History: Yes Surgery Procedure, Year, and Place: 2010 FINGER SURGERY - Right 3rd finger - Family History Known Family History: Positive: Cardiac Disease, Hypertension - Social History Alcohol Use: None Substance Use Type: None Smoking Status (MU): Never Smoked Tobacco - Immunization History Most Recent Influenza Vaccination: 1208-1081 Season Most Recent Tetanus Shot: does not recall Review of Systems Constitutional: Chills, Fatigue Respiratory: Shortness Of Breath Gastrointestinal: Vomiting Is Patient Immunocompromised?: No All Other Systems Reviewed And Are Negative: Yes Physical Exam Triage Information Reviewed: Yes Appearance: No Pain Distress, Well-Nourished, Ill-Appearing - mild Vital Signs: Initial Vital Signs Temp 97.7 F 11/17/17 08:11 Pulse 79 11/17/17 08:11 Resp 22 11/17/17 08:11 BP 140/79 11/17/17 08:11 Pulse Ox 97 11/17/17 08:11 Vital Signs Reviewed: Yes Eyes: Positive: Conjunctiva Clear ENT: Positive: Pharyngeal erythema - mild, Nasal congestion, TMs normal, Sinus tenderness, Uvula midline Neck: Positive: Supple, Nontender, No Lymphadenopathy Respiratory: Positive: Chest non-tender, No respiratory distress, No accessory muscle use, Crackles, Wheezing. Negative: Respiratory distress, Decreased breath sounds Cardiovascular: Positive: RRR, No Murmur, Pulses Normal Psychological Exam: Normal UC Diagnostic Evaluation - Laboratory O2 Sat by Pulse Oximetry: 97 Respiratory Course/Dx - Course Course Of Treatment: CXR negative, albuterol inhalro for SOB, OTC medications for symptoms, work note given, cough with codeine for nighttime - Differential Dx/Diagnosis Differential Diagnosis/HQI/PQRI: Bronchitis, Laryngitis Provider Diagnoses: acute bronchitis Discharge - Sign-Out/Discharge Documenting (check all that apply): Patient Departure All imaging exams completed and their final reports reviewed: Yes - Discharge Plan Condition: Good Disposition: HOME Prescriptions: Albuterol HFA INHALER* [Ventolin HFA Inhaler*] 1 - 2 puff INH Q4H PRN #1 mdi PRN Reason: shortness of breath Codeine Phosphate/Guaifenesin [Guaifenesin-Codeine Syrup] 10 ml PO DAILY PRN # 60 ml MDD 10 ml PRN Reason: Cough guaiFENesin [Guaifenesin ER] 1,200 mg PO BID PRN #20 tab.er.12h PRN Reason: Cough Patient Education Materials: Acute Bronchitis (ED) Forms: *Work Release Referrals: No Primary Care Phys,NOPCP [Primary Care Provider] - Additional Instructions: - Increase fluid intake - Humidifier at night - Cough medication with codeine at night only to help with cough - Albuterol inhaler as needed every 4 hours for shortness of breath - Go to ER with increased coughing, fever - Billing Disposition and Condition Condition: GOOD Disposition: Home
== END 2017-11-17 09:43 | disposition home or self-care (01) ==
LOC: UCEAST 08:06
DX: J20.9 Acute bronchitis, unspecified (principal)
CPT/HCPCS: 71046; 99212; G0463

== ENCOUNTER 2018-06-16 10:21 | Emergency (ER) | payer OTHER ==
[2018-06-16 11:13] VITALS: BP 141/80
--- NOTE | 2018-06-16 11:21 | UC ---
Nausea/Vomiting/Diarrhea HPI - HPI Summary HPI Summary: 23-year-old male presents with 2 day history nausea and vomiting. States he had a fever of 102 F yesterday at the onset of symptoms however has had no fever today. Complains of some mild epigastric pain. No alleviating or aggravating factors. Patient is also complaining of a rash to his lower abdomen for the past several weeks. Denies sore throat, chest pain, shortness of breath, diarrhea, hematemesis, blood in stool, melena, back or flank pain, dysuria, frequency, or urgency. - History of Current Complaint Chief Complaint: UCGI Stated Complaint: FEVER VOMITING Time Seen by Provider: 06/16/18 11:13 Hx Obtained From: Patient Pain Intensity: 3 - Allergies/Home Medications Allergies/Adverse Reactions: Allergies Allergy/AdvReac Type Severity Reaction Status Date / Time No Known Allergies Allergy Verified 06/16/18 11:13 PMH/Surg Hx/FS Hx/Imm Hx Previously Healthy: Yes - Denies significant PMH Other History Of: Negative For: HIV, Hepatitis B, Hepatitis C, Anticoagulant Therapy - Surgical History Surgical History: Yes Surgery Procedure, Year, and Place: 2010 FINGER SURGERY - Right 3rd finger - Family History Known Family History: Positive: Cardiac Disease, Hypertension - Social History Alcohol Use: None Substance Use Type: None Smoking Status (MU): Never Smoked Tobacco - Immunization History Most Recent Influenza Vaccination: 7589-1849 Season Most Recent Tetanus Shot: does not recall Review of Systems All Other Systems Reviewed And Are Negative: Yes Constitutional: Positive: Fever Skin: Negative: Rash ENT: Negative: Sore Throat Respiratory: Negative: Shortness Of Breath, Cough Cardiovascular: Negative: Palpitations, Chest Pain Gastrointestinal: Positive: Abdominal Pain, Vomiting, Nausea, Other - See HPI. Negative: Diarrhea Genitourinary: Negative: Dysuria, Hematuria, Frequency, Urgency Musculoskeletal: Positive: Negative Neurological: Positive: Negative Is Patient Immunocompromised?: No Physical Exam - Summary Physical Exam Summary: GENERAL APPEARANCE: Well developed, obese, alert and cooperative male who appears to be in no acute distress.. EYES: Conjunctiva clear. No drainage. EARS: External auditory canals and tympanic membranes clear, hearing grossly intact. NOSE: No nasal discharge. THROAT: Pharynx normal. No tonsilar inflammation, swelling, exudate, or lesions. Uvula midline. NECK: Neck supple, non-tender without lymphadenopathy. CARDIAC: Normal S1 and S2. No S3, S4 or murmurs. Rhythm is regular. There is no peripheral edema, cyanosis or pallor. Extremities are warm and well perfused. Capillary refill is less than 2 seconds. Peripheral pulses intact. LUNGS: Clear to auscultation without rales, rhonchi, wheezing or diminished breath sounds. ABDOMEN: Positive bowel sounds. Rotund, soft, and nondistended. Mild epigastric tenderness without guarding or rebound. No masses or hepatosplenomegally. MUSKULOSKELETAL: ROM intact to all extremities. No joint erythema or tenderness. Normal muscular development. Normal gait. SKIN: Erythematous, scaly, moist rash to skin folds of abdominal panniculus. Triage Information Reviewed: Yes Vital Signs: Initial Vital Signs Temp 96.4 F 06/16/18 11:11 Pulse 68 06/16/18 11:11 Resp 18 06/16/18 11:11 BP 141/80 06/16/18 11:11 Pulse Ox 99 06/16/18 11:11 Vital Signs Reviewed: Yes Re-Evaluation - Re-Evaluation First Eval Re-Evaluation Time: 12:20 Change: Improved Comment: Patient states nausea has subsided since receiving ondansetron. He is taking PO fluids with no further episodes of vomiting. Will d/c home with prescription for ondansetron and have him continue with PO rehydration. Naus/Vom/Diarrhea Course/Dx - Course Course Of Treatment: 23-year-old male presents with 2 day history nausea and vomiting. States he had a fever of 102 F yesterday at the onset of symptoms however has had no fever today. Complains of some mild epigastric pain. No alleviating or aggravating factors. Patient is also complaining of a rash to his lower abdomen for the past several weeks. Denies sore throat, chest pain, shortness of breath, diarrhea, hematemesis, blood in stool, melena, back or flank pain, dysuria, frequency, or urgency. Afebrile. Vital signs stable. Exam remarkable for mild epigastric tenderness without guarding or rebound and an erythematous, scaly, moist rash to skin folds of abdominal panniculus. Patient was given ondansetron 8 mg by mouth in the clinic with good relief in his nausea. He was given a fluid challenge which she tolerated with no further episodes of vomiting. Discussed with patient that I suspect his symptoms are related to a viral gastroenteritis however he is aware that I cannot fully rule out other causes such as gallbladder disease or pancreatitis. I will discharge him home with a prescription for ondansetron 4 mg every 8 hours as needed for nausea or vomiting and have him continue with oral rehydration. I will also give him a prescription for clotrimazole cream to use for his intertrigo. He is to return here or follow-up with his primary care provider in 2-3 days if symptoms do not improve. Anticipatory guidance and warning symptoms requiring immediate evaluation in the emergency room were reviewed with the patient. Verbalizes understanding and agrees with plan of care. - Differential Dx/Diagnosis Differential Diagnoses - Male: Pancreatitis, Gall Bladder Disease, Gastroenteritis (Viral), Gastroenteritis (Bacterial), Vomiting, Gastritis Provider Diagnosis: Nausea and vomiting, Intertrigo Condition At Discharge: Stable Discharge - Sign-Out/Discharge Documenting (check all that apply): Patient Departure All imaging exams completed and their final reports reviewed: No Studies - Discharge Plan Condition: Stable Disposition: HOME Prescriptions: Clotrimazole [Lotrimin AF] 30 gm TP BID #1 tube Ondansetron ODT TAB* [Zofran 4 MG Odt TAB*] 4 mg PO Q8H PRN #9 tab.odt PRN Reason: Nausea/Vomiting Patient Education Materials: Acute Nausea and Vomiting (ED), Skin Yeast Infection (ED) Forms: *Work Release Referrals: No Primary Care Phys,NOPCP [Primary Care Provider] - Additional Instructions: Take ondansetron 1 tab every 8 hours as needed for nausea or vomiting. Drink plenty of fluids. Try to drink small amounts frequently to avoid filling your stomach to full which can cause vomiting. If you are still having vomiting, start with a clear liquid diet including soup broths, Jello, popsicles, and rehan-oziel with carbonation stirred out of it. You may then advance to a bland diet including saltine crackers, toast, bananas , rice, and applesauce. Then return to a normal diet as tolerated. The rash on your abdomen appears to be a yeast infection. Use clotrimazole cream twice daily to affected area. Keep the area clean. Use an absorbent powder such as corn starch to help with the moisture. Try to allow the area to be open to air every day. Return here or follow up with your primary care provider in 2-3 days if symptoms persist. Seek immediate medical attention in the emergency room if you develop fever greater than 100.5 F, have severe abdominal pain, persistent vomiting, blood in your vomit or stool, or any worsening of symptoms. - Billing Disposition and Condition Condition: STABLE Disposition: Home
[2018-06-16] MEDS ORDERED: Ondansetron ODT TAB* 4 MG PO ONE (11:31)
== END 2018-06-16 12:40 | disposition home or self-care (01) ==
LOC: UCEAST 10:21
DX: R11.2 Nausea with vomiting, unspecified (principal); R10.13 Epigastric pain; L30.4 Erythema intertrigo
CPT/HCPCS: 99212; A9270-GY; G0463

== ENCOUNTER 2018-12-03 07:06 | Emergency (ER) | payer OTHER ==
[2018-12-03 07:19] VITALS: BP 118/62
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
== END 2018-12-03 07:43 | disposition home or self-care (01) ==
LOC: UCEAST 07:06
DX: K52.9 Noninfective gastroenteritis and colitis, unspecified (principal); E66.9 Obesity, unspecified
CPT/HCPCS: 99211; G0463

== ENCOUNTER 2019-02-13 14:24 | Emergency (ER) | payer OTHER ==
[2019-02-13 15:11] VITALS: BP 145/87
--- NOTE | 2019-02-13 22:48 | UC ---
Skin Complaint HPI - HPI Summary HPI Summary: PATIENT HAS HAD ABOUT 5 DAYS OF BILATERAL FEET REDNESS AND PEELING. HE HAS BEEN WORKING OUT MORE AND HIS FEET HAVE BEEN HOT AND SWEATY. HE HAS BEEN USING OTC ATHLETE'S FOOT SPRAY FOR THE PAST FEW DAYS WITH NO IMPROVEMENT. HE IS ALSO COMPLAINING OF SEVERAL MONTHS OF ITCHY IRRITATED SKIN UNDER HIS ABDOMINAL PANNUS. - History of Current Complaint Chief Complaint: UCLowerExtremity Time Seen by Provider: 02/13/19 15:08 Stated Complaint: FOOT PAIN Hx Obtained From: Patient Onset/Duration: Gradual Onset, Lasting Days, Still Present Timing: Constant Onset Severity: Moderate Current Severity: Moderate Pain Intensity: 1 Pain Scale Used: 0-10 Numeric Character: Pain, Redness Aggravating Factor(s): Nothing Alleviating Factor(s): Nothing Associated Signs & Symptoms: Positive: Rash, Tenderness. Negative: Fever, Drainage, Red Streaks - Allergy/Home Medications Allergies/Adverse Reactions: Allergies Allergy/AdvReac Type Severity Reaction Status Date / Time No Known Allergies Allergy Verified 02/13/19 15:11 PMH/Surg Hx/FS Hx/Imm Hx Previously Healthy: Yes Other History Of: Negative For: HIV, Hepatitis B, Hepatitis C, Anticoagulant Therapy - Surgical History Surgical History: Yes Surgery Procedure, Year, and Place: 2010 FINGER SURGERY - Right 3rd finger - Family History Known Family History: Positive: Cardiac Disease, Hypertension, Diabetes - Social History Alcohol Use: Rare Substance Use Type: None Smoking Status (MU): Never Smoked Tobacco - Immunization History Most Recent Influenza Vaccination: 7194-1260 Season Most Recent Tetanus Shot: does not recall Review of Systems All Other Systems Reviewed And Are Negative: Yes Constitutional: Positive: Negative Skin: Positive: Other - REDNESS BILATERAL FEET AND UNDER BELLY Respiratory: Positive: Negative Cardiovascular: Positive: Negative Gastrointestinal: Positive: Negative Physical Exam Triage Information Reviewed: Yes Appearance: Well-Appearing, No Pain Distress, Well-Nourished, Obese Vital Signs: Initial Vital Signs Temp 98.2 F 02/13/19 15:05 Pulse 94 02/13/19 15:05 Resp 18 02/13/19 15:05 BP 145/87 02/13/19 15:05 Pulse Ox 97 02/13/19 15:05 Vital Signs Reviewed: Yes Eyes: Positive: Conjunctiva Clear ENT: Positive: Hearing grossly normal Neck: Positive: Supple Respiratory: Positive: No respiratory distress, No accessory muscle use Cardiovascular: Positive: Pulses Normal Abdomen Description: Positive: Soft Musculoskeletal: Positive: No Edema Neurological: Positive: Alert Skin: Positive: Other - ERYTHEMA BILATERAL SOLES AND IN BETWEEN TOES WITH SOME SKIN FLAKING. HYPERPIGMENTED SKIN UNDER ABDOMINAL PANNUS WITH ERYTHEMATOUS BORDERS Course/Dx - Course Course Of Treatment: PRESENTATION MORE CONSISTENT WITH TINEA/FUNGAL INFECTION THAN WITH ANYTHING BACTERIAL AT PRESENT. TERBINAFINE CREAM TO BILATERAL FEET TWICE DAILY AND UNDER ABDOMINAL PANNUS ONCE DAILY. NYSTATIN POWDER ALSO PROVIDED TO HELP WITH MOISTURE. ADVISED DERMATOLOGY FOLLOW-UP. PATIENT REPORTS A STRONG FAMILY HISTORY OF DIABETES. WILL CHECK LABS TODAY INCLUDING CBC, CMP AND A1C IF PATIENT IS A DIABETIC IT WOULD BE A RISK FACTOR FOR FUNGAL INFECTIONS AND WOULD ALSO IMPAIR HIS ABILITY TO RECOVER. HE HAS AN APPOINTMENT WITH HIS PCP IN 2 DAYS AND I HAVE ADVISED HIM TO KEEP THIS APPOINTMENT. - Diagnoses Provider Diagnosis: Tinea pedis of both feet, Intertriginous candidiasis Discharge ED - Sign-Out/Discharge Documenting (check all that apply): Patient Departure All imaging exams completed and their final reports reviewed: No Studies - Discharge Plan Condition: Stable Disposition: HOME Prescriptions: Nystatin TOP POWDER* 1 applic TOPICAL BID #1 btl Terbinafine HCl [Antifungal] 2 gm TP BID #1 tube Patient Education Materials: Athlete's Foot (ED), Skin Yeast Infection (ED) Referrals: Brandon Bravo MD [Primary Care Provider] - (KEEP YOUR APPT IN 2 DAYS) Additional Instructions: YOUR SKIN CONDITION IS LIKELY FUNGAL. APPLY THE ANTIFUNGAL CREAM TOPICALLY TO YOUR FEET (INCLUDING IN BETWEEN THE TOES) TWICE DAILY. APPLY IT UNDER YOUR BELLY ONCE DAILY. AFTER IT HAS ABSORBED APPLY THE TOPICAL ANTIFUNGAL POWDER UNDER YOUR BELLY TO HELP ABSORB MOISTURE. THE POWDER CAN BE USED 2-3 TIMES DAILY. TRY TO KEEP THE AFFECTED AREAS COOL, CLEAN AND DRY. FOLLOW-UP WITH A PLATE CUTTER IN 2-3 WEEKS TO REASSESS. LABS DRAWN TODAY INCLUDE BLOOD COUNT, METABOLIC PANEL AND HBA1C TO ASSESS FOR DIABETES. KEEP YOUR PCP FOLLOW-UP IN 2 DAYS[address] DERMATOLOGY IN [place] DR. HANDY ORTEGA (DOES NOT SEE PTS ON MONDAYS OR TUESDAYS. DOES NOT TAKE MEDICAID) [facility], [facility] [address]; [address] [place] [address] Dr. Giselle Granda Address: [address] [place] [address] DR. PIPER BARRON, DR. TONO [facility] [facility] [address] [place] [address] [facility] [place] LOCATION [address] [place] [address] [place] [place] Dr[address] Roberta Cortes DERMATOLOGY IN [place] DR. PIPER BARRON [phone] - Billing Disposition and Condition Condition: STABLE Disposition: Home
[2019-02-14 10:08] LABS: Hematocrit 44 % (42-52); Hemoglobin 15.4 g/dL (14.0-18.0); Mean Corpuscular HGB Conc 35 g/dL (31-36); Mean Corpuscular Hemoglobin 28 pg (27-31); Mean Corpuscular Volume 82 fL (80-94); Mean Platelet Volume 8.7 fL (7.4-10.4); Platelet Count 364 10^3/uL (150-450); Red Blood Count 5.41 10^6 /uL (4.18-5.48); Red Cell Distribution Width 13 % (10-15); White Blood Count 8.9 10^3/uL (3.5-10.8)
[2019-02-14 10:21] LABS: Albumin 4.2 g/dL (3.2-5.2); Calcium 9.9 mg/dL (8.6-10.3); Potassium 4.2 mmol/L (3.5-5.0); Total Bilirubin 0.3 mg/dL (0.2-1.0)
[2019-02-14 10:27] LABS: Albumin/Globulin Ratio 1.4 (1-3); BUN/Creatinine Ratio 19.3 (8-20); EGFR African American 135.5 (>60); Globulin 2.9 g/dL (2-4); Total Protein 7.1 g/dL (6.4-8.9)
[2019-02-14 11:10] LABS: ABS Basophils 0.1 10^3/ul (0-0.2); ABS Eosinophils 0.2 10^3/ul (0-0.6); ABS Lymphocytes 2.8 10^3/ul (1.0-4.8); ABS Monocytes 0.7 10^3/ul (0-0.8); ABS Neutrophils 5.2 10^3/ul (1.5-7.7); Eosinophil % 1.9 %; Lymphocyte % 31.1 %; Nucleated Red Blood Cells % 0.3
--- NOTE | 2019-02-15 15:07 | UC ---
- Progress Note Progress Note: A1C 6.4%. >6.5% is indicative of diabetes. 6.4% is certainly elevated and indicative of borderline or high risk of develop diabetes. At visit pt apparently has an appt with his PCP within a few days. Important to keep this for further eval and treatment. Course/Dx - Diagnoses Provider Diagnoses: Tinea pedis of both feet, Intertriginous candidiasis Discharge ED - Sign-Out/Discharge Documenting (check all that apply): Post-Discharge Follow Up All imaging exams completed and their final reports reviewed: No Studies - Discharge Plan Condition: Stable Disposition: HOME Prescriptions: Nystatin TOP POWDER* 1 applic TOPICAL BID #1 btl Terbinafine HCl [Antifungal] 2 gm TP BID #1 tube Patient Education Materials: Athlete's Foot (ED), Skin Yeast Infection (ED) Referrals: Brandon Bravo MD [Primary Care Provider] - (KEEP YOUR APPT IN 2 DAYS) Additional Instructions: YOUR SKIN CONDITION IS LIKELY FUNGAL. APPLY THE ANTIFUNGAL CREAM TOPICALLY TO YOUR FEET (INCLUDING IN BETWEEN THE TOES) TWICE DAILY. APPLY IT UNDER YOUR BELLY ONCE DAILY. AFTER IT HAS ABSORBED APPLY THE TOPICAL ANTIFUNGAL POWDER UNDER YOUR BELLY TO HELP ABSORB MOISTURE. THE POWDER CAN BE USED 2-3 TIMES DAILY. TRY TO KEEP THE AFFECTED AREAS COOL, CLEAN AND DRY. FOLLOW-UP WITH A EAP CONSULTANT IN 2-3 WEEKS TO REASSESS. LABS DRAWN TODAY INCLUDE BLOOD COUNT, METABOLIC PANEL AND HBA1C TO ASSESS FOR DIABETES. KEEP YOUR PCP FOLLOW-UP IN [address] IN [place] DR. HANDY ORTEGA (DOES NOT SEE PTS ON MONDAYS OR TUESDAYS. DOES NOT TAKE MEDICAID) [facility], [facility] [address] [place] [address]; [address] [place] [address] Dr. Giselle Granda Address: [facility] [place] [address] DR. PIPER BARRON, DR. TONO CHASE [facility] Dermatology [address] [place] [address] [facility] DERMATOLOGY [place] LOCATION [address] [place] [address] Roberta Cortes DERMATOLOGY IN [place] DR. PIPER BARRON [phone] - Billing Disposition and Condition Condition: STABLE Disposition: Home
== END 2019-02-13 16:10 | disposition home or self-care (01) ==
LOC: UCEAST 14:24
DX: B35.3 Tinea pedis (principal); B37.2 Candidiasis of skin and nail
CPT/HCPCS: 36415; 80053; 83036; 85025; 99212; G0463